=== PATIENT | female | born 1995 | race American Indian/Alaskan Native ===

== ENCOUNTER 2019-02-08 18:30 | Emergency (ER) | payer SELFPAY ==
[2019-02-08 19:44] VITALS: BP 131/65
--- NOTE | 2019-02-08 19:44 | Emergency Department Report ---
Chief Complaint: Upper Respiratory Infection Stated Complaint: DIF BREATHING/CP/COUGH Time Seen by Provider: 02/08/19 19:40 - HPI History of Present Illness: This is a 23 y.o. F. that presents to the ER with cough, myalgia, congestion, SOB, and chest pain for 5 days. Taking OTC cold and flu medication w/o change of symptoms. Last taken medication last night. Current smoker MSE screening note: Focused history and physical exam performed. Due to findings the following was ordered: ED Disposition for MSE Condition: Stable
== END 2019-02-08 23:54 | disposition left against medical advice (07) ==
LOC: ED 18:30
DX: R05 Cough (principal); R09.81 Nasal congestion; R06.02 Shortness of breath
CPT/HCPCS: 99281